=== PATIENT | female | born 1970 | race Caucasian/White ===

== ENCOUNTER 2019-02-12 08:51 | Outpatient (CLI) | payer MEDICAID ==
[2019-02-12] MEDS ORDERED: SODIUM BICARBONATE 4.2%, 5ML ONE (10:12)
[2019-02-12] MEDS ORDERED: LIDOCAINE 1%-EPI 1:100K, 20ML ONE (10:12)
[2019-02-12] MEDS ORDERED: LIDOCAINE 1%, 20ML ONE (10:12)
== END 2019-02-12 23:59 | disposition home or self-care (01) ==
LOC: CFH 08:51
PROVIDERS: ATTEND Nurse Practitioner Family
DX: N63.20 Unspecified lump in the left breast, unspecified quadrant (principal)
CPT/HCPCS: 19083; 88305; J3490